=== PATIENT | female | born 1955 | race Caucasian/White ===

== ENCOUNTER 2019-06-12 10:26 | Emergency (ER) | payer OTHER ==
[~2019-06-12] VITALS: Ht 167.6 cm; Wt 72.6 kg
[2019-06-12] MEDS ORDERED: CYCL10 PO (10:51)
[2019-06-12] MEDS ORDERED: PROZAC40 MG PO (10:51)
[2019-06-12] MEDS ORDERED: ALPR.5 PO (10:52)
== END 2019-06-12 12:11 | disposition home or self-care (01) ==
LOC: ER 10:26
DX: J02.9 Acute pharyngitis, unspecified (principal); Z87.891 Personal history of nicotine dependence; Z88.0 Allergy status to penicillin; Z79.899 Other long term (current) drug therapy
CPT/HCPCS: 87081; 87430; 99283